=== PATIENT | female | born 1990 | race Caucasian/White ===

== ENCOUNTER 2024-04-26 19:53 | Emergency (ER) | payer OTHER, SELFPAY ==
[2024-04-26 20:00] VITALS: BP 114/79
--- NOTE | 2024-04-26 20:06 | ED.PDOC.TRB ---
ED Provider Triage
-
Patient seen by provider in Triage?: Seen in Triage
*Initial assessment performed in triage to expedite workup*
33-year-old female presents the emergency department for evaluation of chest tightness that has been occurring episodically throughout the day. She also feels weakness and near syncopal. Went to urgent care at which time she had an unremarkable
EKG and was deferred to the emergency department. She reports shortness of breath, has used her albuterol inhaler without relief. No recent fevers or chills. No recent nausea or vomiting.
Looks clinically well, initial EKG is unremarkable. Lungs are clear and heart sounds are regular. Will obtain basic labs including troponin given the patient describes symptoms as 'elephant sitting on my chest'. Will obtain chest x-ray
[2024-04-26 20:23] LABS: % Basophils 0.4 % (0-2); % Eosinophils 0.6 % (0-6); % Immature Granulocytes 0.1 % (0-0.5); % Lymphocytes 15.2 % (20.5-51.1); % Monocytes 5.3 % (1.7-9.3); % Neutrophils 78.4 % (42.2-75.2); Absolute Eosinophils 0.1 10^3/uL (0-0.7); Absolute Lymphocytes 1.2 10^3/uL (1.2-3.4); Absolute Monocytes 0.4 10^3/uL (0.1-0.6); Hematocrit 36.9 % (37.0-47.0); Hemoglobin 12.3 g/dL (12.0-16.0); Mean Corp Hgb Conc. 33.3 g/dL (33.0-37.0); Mean Corpuscular Hgb 30.4 pg (27.0-31.0); Mean Corpuscular Volume 91.1 fL (81.0-99.0); Mean Platelet Volume 11.1 fL (7.4-10.4); Nucleated Red Blood Cells % 0 %; Platelet Count 265 10^3/uL (130-400); Red Blood Cell Count 4.05 10^6/uL (4.20-5.40); Red Cell Dist. Width 12.5 % (11.5-14.5); White Blood Cell Count 7.7 10^3/uL (4.8-10.8)
[2024-04-26 20:44] LABS: ALT (SGPT) 13 U/L (0-35); AST (SGOT) 20 U/L (14-36); Albumin 4.5 g/dl (3.5-5.0); Alkaline Phosphatase 76 U/L (38-126); Blood Urea Nitrogen 16 mg/dl (7-17); Calcium 9.6 mg/dl (8.4-10.2); Carbon Dioxide 26 mmol/L (22-30); Chloride 103 mmol/L (98-107); Glucose 87 mg/dl (70-99); Potassium 3.6 mmol/L (3.5-5.1); Sodium 140 mmol/L (135-145); Total Bilirubin 0.9 mg/dl (0.2-1.3); Total Protein 7.4 g/dl (6.3-8.2); eGFR > 60.00
[2024-04-26 20:48] LABS: Troponin I < 0.012 ng/ml
[2024-04-26 22:25] VITALS: BMI 22.4
[2024-04-26 22:35] VITALS: BP 114/75
--- NOTE | 2024-04-26 23:05 | ED.GENMED ---
History of Present Illness
General
Chief Complaint: Chest Pain
Source: patient
Time Seen by Provider: 04/26/24 22:49
Travel History
Have you had any contact with someone who has COVID-19?: No
Do you have any symptoms of coronavirus? Fever > 100 degrees, chills, cough, shortness of breath, sore throat, loss of taste or smell, muscle aches, or headache?: No
History of Present Illness
History of Present Illness:
33-year-old female presents to the emergency room complaining of chest pain. Patient has been having chest pain since this afternoon. She used her albuterol without improvement. Patient went to urgent care where she was referred to the emergency
room. Patient describes it as a chest discomfort. It may be somewhat worse with deep inspiration. She is not particular short of breath. She feels worse with activity however. No fever or chills.
Past History
Past History
ED Past Medical History: Asthma and Other (PCOS, PE, Pituitar tumor, Anemia, )
ED Past Surgical History: , Gynecological (Leep, ) and Other (Gastric sleeve)
Social History
Tobacco: Non-smoker
Alcohol: Occasional
Drug: None
Personal:
Living: with family
Employment: Employed
Family History
Family History: Other (mother with ectopic )
Phy Exam
Physical Exam
Physical Exam:
General: Awake, Alert, Oriented X3. No acute distress.
Vitals: unremarkable
Head: Atraumatic
Eyes: Pupils equal, EOMI
Throat: Airway intact, no exudates
Neck: Trachea midline
Lungs: Clear and equal b/l
Heart: Regular rate, no murmurs
Abd: Soft, Nontender, No pulsatile mass
Neuro: Nonfocal
Skin: Warm, dry, no rash
Extremities: pulses equal b/l, no edema
Scores
Heart Score for Chest Pain Patients
STEMI patient?: No
History: Slightly or Non-Suspicious
ECG: Normal
Age: </= 45 years
Risk Factors: No Risk Factors
Troponin: </= Normal Limit
Heart Score for Chest Pain Patients: 0
Heart Score Risk: 2.5% MACE over next 6 weeks
Course
Orders/Labs/Results
Orders:
Orders
04/26/24 19:55
Electrocardiogram (*1) Urgent
Reason for Study: Vertigo / Dizzy
EKG- Treatment ONCE
04/26/24 20:05
CR Chest - 2 Views Urgent
Comment:
Reason For Exam: SOB/CP
04/26/24 20:09
Complete Blood Count/With Diff Urgent
Comprehensive Metabolic Panel Urgent
Troponin I Urgent
04/26/24 23:06
Ketorolac [Toradol] 15 mg IV NOW STA
04/26/24 23:07
Test Result ONCE
04/26/24 23:24
D-Dimer Urgent
HCG, Serum Qualitative Screen Urgent
Troponin I Urgent
Abnormal Lab Results
04/26/24
20:09
RBC 4.05 L 10^6/uL
(4.20-5.40)
Hct 36.9 L %
(37.0-47.0)
MPV 11.1 H fL
(7.4-10.4)
Neutrophils % 78.4 H %
(42.2-75.2)
Lymphocytes % 15.2 L %
(20.5-51.1)
04/26/24 20:09
04/26/24 20:09
Vital Signs
Initial and Last Documented VS:
Initial Vital Signs
Temp Pulse Resp BP Pulse Ox
98.0 F 82 16 114/79 100
04/26/24 20:00 04/26/24 20:00 04/26/24 20:00 04/26/24 20:00 04/26/24 20:00
Last Documented Vital Signs
Temp Pulse Resp BP Pulse Ox
98.0 F 79 15 109/73 99
04/26/24 20:00 04/27/24 01:01 04/27/24 01:01 04/27/24 01:01 04/26/24 22:25
MDM/Problems Addressed
Differential Diagnosis Includes:
Asthma exacerbation, chest wall discomfort, PE, acute coronary syndrome
MDM/Problems Addressed:
EKG shows no acute ischemic changes. Troponins negative x 2. D-dimer is normal. Physical exam not suggestive of a serious cause of chest discomfort. Patient revealed to Clementine her nurse that she did have a fall about a week ago. She did strike
her chest at that time. Suspect the patient's pain is from chest wall etiology. More serious etiologies have been excluded.
*Radiology
Radiology exam reviewed: radiology read reviewed
*Pulse Oximetry
Patient hypoxic: no
*EKG
Interpreted by ED Provider?: Yes
Interpretation: normal
Heart Rate: 84
Rate: normal
Rhythm: sinus
Corona: normal axis
Interval: normal interval
QRS Pattern: normal QRS
Ischemia: no ischemia
*Commercial Real Estate Attorney Interpretation
Rate: normal
Interpretation: normal
Rhythm: sinus
*Critical Care Note
Total Time (30-74mins, 75-104mins- exclusive of procedures): Not Applicable
ED Attending Note
-
Portions of this chart may have been created with voice recognition software.� Occasional wrong word or��sound alike� substitutions may have occurred due to the inherent limitations of voice recognition software.
Discharge Plan
Departure
Patient Disposition: Home (Routine Discharge)
Date of Disposition: 04/27/24
Time of Disposition: 00:30
Patient with high blood pressure during this ER visit?: No
Condition: Good
Discharge Problem:
Chest pain
Instructions: Chest Pain PCP Follow Up
Prescriptions:
No Action
albuterol sulfate 1 PUFF HFA aerosol inhaler
1 inh inhalation PRN PRN (Reason: asthma)
hydrocodone-acetaminophen 5-325 mg tablet
1 - 2 tab PO Q4HPRN PRN (Reason: moderate to severe pain) Qty: 14 0RF
Referrals:
Rafa Hirsch MD [Family Provider] -
Interventions
Interventions:
*Risk Screen - Suicide Last Done: 04/26/24 20:00
*General Assessment Last Done: 04/26/24 20:00
*Neglect/Abuse Screening Last Done: 04/26/24 20:00
ED- Fall Risk Assessment Last Done: 04/26/24 22:25
*ED COVID-19 Vaccine History Last Done: 04/26/24 22:25
*Nursing Disposition Last Done: 04/27/24 01:07
ED- Cardiac Assessment Last Done: 04/26/24 22:25
Discharge Date and Time
Discharge Date/Time: 04/27/24 01:08
Print Language: TAMAZIGHT
[2024-04-26] MEDS: TORADOL 15 MG IV (23:24)
[2024-04-26 23:48] LABS: D-Dimer 0.32 ug/mlFEU (0.00-0.50)
[2024-04-26 23:49] LABS: HCG, Serum Qualitative Screen Negative
[2024-04-26 23:59] LABS: Troponin I < 0.012 ng/ml
[2024-04-27 01:01] VITALS: BP 109/73
== END 2024-04-27 01:08 | disposition home or self-care (01) ==
LOC: EMR 19:53
PROVIDERS: Physician Assistant; EMERGENCY PHYSICIAN Emergency Medicine; FAMILY PHYSICIAN Internal Medicine
DX: R55 Syncope and collapse (principal); R07.89 Other chest pain; R06.02 Shortness of breath; J45.909 Unspecified asthma, uncomplicated; D64.9 Anemia, unspecified; Z98.84 Bariatric surgery status
CPT/HCPCS: 99284; 96374; 71046; 80053; 84484; 84703; 85025; 85379; 93005

== ENCOUNTER 2025-04-08 20:56 | Emergency (ER) | payer OTHER, SELFPAY ==
[2025-04-08 21:02] VITALS: BP 136/99
[2025-04-08] MEDS: ZOFRAN ODT (ORALLY DISINTEGRATING) 4 MG PO (21:09)
[2025-04-08 21:25] LABS: % Basophils 0.4 % (0-2); % Eosinophils 0.9 % (0-6); % Immature Granulocytes 0.3 % (0-0.5); % Lymphocytes 27.3 % (20.5-51.1); % Monocytes 6.2 % (1.7-9.3); % Neutrophils 64.9 % (42.2-75.2); Absolute Eosinophils 0.1 10^3/uL (0-0.7); Absolute Lymphocytes 2.1 10^3/uL (1.2-3.4); Absolute Monocytes 0.5 10^3/uL (0.1-0.6); Absolute Neutrophils 4.9 10^3/uL (1.4-6.5); Hematocrit 39.7 % (37.0-47.0); Hemoglobin 13.4 g/dL (12.0-16.0); Mean Corp Hgb Conc. 33.8 g/dL (33.0-37.0); Mean Corpuscular Hgb 30.2 pg (27.0-31.0); Mean Corpuscular Volume 89.4 fL (81.0-99.0); Mean Platelet Volume 10.8 fL (7.4-10.4); Nucleated Red Blood Cells % 0 %; Platelet Count 308 10^3/uL (130-400); Red Blood Cell Count 4.44 10^6/uL (4.20-5.40); Red Cell Dist. Width 12.9 % (11.5-14.5); White Blood Cell Count 7.6 10^3/uL (4.8-10.8)
[2025-04-08 21:38] LABS: Lactic Acid 0.9 mmol/L (0.7-2.0)
[2025-04-08 21:42] LABS: HCG, Serum Qualitative Screen Negative
[2025-04-08 21:47] LABS: ALT (SGPT) 15 U/L (0-35); AST (SGOT) 25 U/L (14-36); Albumin 4.5 g/dl (3.5-5.0); Alkaline Phosphatase 68 U/L (38-126); Blood Urea Nitrogen 13 mg/dl (7-17); Calcium 9.3 mg/dl (8.4-10.2); Carbon Dioxide 26 mmol/L (22-30); Chloride 106 mmol/L (98-107); Glucose 118 mg/dl (70-99); Potassium 3.6 mmol/L (3.5-5.1); Sodium 138 mmol/L (135-145); Total Bilirubin 1.5 mg/dl (0.2-1.3); Total Protein 7.7 g/dl (6.3-8.2); eGFR > 60.00
[2025-04-08 21:49] LABS: Creatine Phosphokinase 290 U/L (30-135); Lipase 89 U/L (23-300)
[2025-04-08 21:50] LABS: Troponin I < 0.012 ng/ml
[2025-04-09] VITALS: BP 138/82
--- NOTE | 2025-04-09 01:25 | ED.GENMED ---
History of Present Illness
General
Chief Complaint: Generalized Pain
Source: patient and spouse
Exam Limitations: none
Time Seen by Provider: 04/09/25 01:07
Nursing documentation reviewed up to this point in time: agreed with
History of Present Illness
History of Present Illness:
34-year-old female presents emergency department due to chest tightness, vomiting, shakes, lightheadedness 'terrible sunburn and generalized pain. [place] the beach [place], and fell asleep. She awoke sunburned. Tonight she was having the
nausea and vomiting all day, and called her primary care doctor. She was directed to the emergency department.
Past History
Past History
ED Past Medical History: Asthma and Other (PCOS, PE, Pituitar tumor, Anemia, )
ED Past Surgical History: , Gynecological (Leep, ) and Other (Gastric sleeve)
Social History
Tobacco: Non-smoker
Alcohol: Occasional
Drug: None
Personal:
Living: with family
Employment: Employed
Family History
Family History: Other (mother with ectopic )
Review of Systems
Review of Systems
Allergies reviewed?: Yes
All Other Systems: Not applicable
Constitutional: Reports no symptoms
EENT: Reports no symptoms
Respiratory: Reports no symptoms
Cardiac: Reports no symptoms
ABD/GI: Reports nausea, vomiting and diarrhea; Denies abdominal pain
: Reports no symptoms
Musculoskeletal: Reports no symptoms
Skin: Reports other (Sunburn)
Neurological: Reports no symptoms
Endocrine: Reports no symptoms
Hematologic/Lymphatic: Reports no symptoms
Psychiatric: Reports no symptoms
Phy Exam
Physical Exam
Physical Exam:
Physical Exam
General: no apparent distress, not acutely ill
Neck: supple. no meningeal signs. normal posterior pharynx
Heart: s1/s2 regular rate and rhythm, no murmur. equal radial
pulses.
HEENT: Pupils equal round reactive to light, EOMI
Lungs: no acute respiratory distress. clear bilaterally
Abdomen: normal bowel sounds. not tender. no CVAT
Neuro: alert and oriented. no focal neurological deficits cranial nerves II through XII intact
Skin: no rash, sunburn on anterior legs, trunk and face
Psychiatric: well kept. interactive and cooperative
Extremities: no edema. no calf tenderness. negative homans. good distal pulses
Course
Orders/Labs/Results
Orders:
Orders
04/08/25 21:05
Electrocardiogram (*1) Urgent
Reason for Study: Chest Pain
EKG- Treatment ONCE
Test Result ONCE
04/08/25 21:07
Ondansetron Orally Disint [Zofran Odt (Orally Disintegrating)] 4 mg .ROUTE .STK-MED ONE
04/08/25 21:08
Ondansetron Orally Disint [Zofran Odt (Orally Disintegrating)] 4 mg PO NOW STA
04/08/25 21:17
Complete Blood Count/With Diff Urgent
Comprehensive Metabolic Panel Urgent
Creatine [Creatine Phosphokinase] Urgent
HCG, Serum Qualitative Screen Urgent
Lactic Acid Urgent
Lipase Urgent
Troponin I Urgent
04/09/25 01:23
Ondansetron Injectable [Zofran] 4 mg IV NOW STA
04/09/25 01:24
Lactated Ringers [Lr] 1,000 ml IV BOLUS
04/09/25 01:30
Ketorolac [Toradol] 15 mg IV NOW STA
04/09/25 01:58
Acetaminophen [Tylenol] 650 mg PO NOW STA
04/09/25 02:07
Calamine [Calamine Lotion] See Dose Instructions TOPICAL STAT STA
04/09/25 02:26
Calamine [Calamine Lotion] See Dose Instructions TOPICAL STAT STA
04/09/25 03:11
Ketorolac [Toradol] 15 mg IV NOW STA
Abnormal Lab Results
04/08/25
21:17
MPV 10.8 H fL
(7.4-10.4)
Glucose 118 H mg/dl
(70-99)
Total Bilirubin 1.5 H mg/dl
(0.2-1.3)
Creatine Kinase 290 H U/L
(30-135)
04/08/25 21:17
04/08/25 21:17
Vital Signs
Initial and Last Documented VS:
Initial Vital Signs
Temp Pulse Resp BP Pulse Ox
97.5 F 95 16 136/99 98
04/08/25 21:02 04/08/25 21:02 04/08/25 21:02 04/08/25 21:02 04/08/25 21:02
Last Documented Vital Signs
Temp Pulse Resp BP Pulse Ox
97.5 F 74 18 119/84 100
04/08/25 21:02 04/09/25 01:55 04/09/25 01:55 04/09/25 01:55 04/09/25 01:55
MDM/Problems Addressed
Differential Diagnosis Includes:
Dehydration, sunburn
MDM/Problems Addressed:
34-year-old female with sunburn, nausea, vomiting, hypovolemia. Improved after IV fluids and Zofran. Treated with calamine and Toradol. Follow-up with primary care. Referral given to hematology due to her history of factor V Leiden and not
followed up in several years.
*Pulse Oximetry
Patient hypoxic: no
*Critical Care Note
Total Time (30-74mins, 75-104mins- exclusive of procedures): Not Applicable
Patient Management
Social determinants of health affecting care: Living situation and Strong social support
Escalation/DeEscalation of care consider admission/obs:
Admit not indicated
ED Attending Note
-
Portions of this chart may have been created with voice recognition software.� Occasional wrong word or��sound alike� substitutions may have occurred due to the inherent limitations of voice recognition software.
Discharge Plan
Departure
Patient Disposition: Home (Routine Discharge)
Date of Disposition: 04/09/25
Time of Disposition: 03:13
Patient with high blood pressure during this ER visit?: No
Condition: Good
Discharge Problem:
Sunburn, Nausea and vomiting
Instructions: Sunburn ED, Nausea and vomiting in adults
Prescriptions:
New
ondansetron 4 mg tablet,disintegrating
4 mg PO Q8H PRN (Reason: nausea and vomiting) 4 Days Qty: 7 0RF
Referrals:
Khari Sinclair DO [Active] - Call in 1-3 days for appt
Steven Bhat MD [Family Provider] - Call in 1-3 days for appt
Interventions
Interventions:
*Risk Screen - Suicide Last Done: 04/09/25 02:02
*General Assessment Last Done: 04/09/25 02:02
*Neglect/Abuse Screening Last Done: 04/09/25 02:02
*ED- Fall Risk Assessment Last Done: 04/09/25 02:02
*ED COVID-19 Vaccine History Last Done: 04/09/25 02:02
Discharge Date and Time
Print Language: TURKMEN
[2025-04-09] MEDS: LR 1000 IV (01:53)
[2025-04-09] MEDS: ZOFRAN 4 MG IV ×2 (01:54→03:52)
[2025-04-09 01:55] VITALS: BP 119/84
[2025-04-09] MEDS: TYLENOL 650 MG PO (02:29)
[2025-04-09] MEDS: CALAMINE LOTION 50 ML TOPICAL (02:43)
[2025-04-09] MEDS: NSS 1000 IV (03:53)
[2025-04-09] MEDS: TORADOL 15 MG IV (03:58)
[2025-04-09 04:00] VITALS: BP 103/69
[2025-04-09 05:02] VITALS: BP 90/51
== END 2025-04-09 05:15 | disposition home or self-care (01) ==
LOC: EMR 20:56
PROVIDERS: Emergency Medicine; Student in an Organized Health Care Education/Training Program; EMERGENCY PHYSICIAN Emergency Medicine; FAMILY PHYSICIAN Internal Medicine
DX: L55.9 Sunburn, unspecified (principal); R11.2 Nausea with vomiting, unspecified; R42 Dizziness and giddiness; J45.909 Unspecified asthma, uncomplicated; E28.2 Polycystic ovarian syndrome; D64.9 Anemia, unspecified; D68.51 Activated protein C resistance; E86.1 Hypovolemia
CPT/HCPCS: 99283; 96374; 96375; 96376; 80053; 82550; 83605; 83690; 84484; 84703; 85025; 93005

== ENCOUNTER 2025-09-14 16:50 | Emergency (ER) | payer OTHER, SELFPAY ==
[2025-09-14 16:54] VITALS: BP 132/87
[2025-09-14 17:16] LABS: Hematocrit 39.0 % (37.0-47.0); Hemoglobin 12.7 g/dL (12.0-16.0); Mean Corp Hgb Conc. 32.6 g/dL (33.0-37.0); Mean Corpuscular Volume 89.4 fL (81.0-99.0); Nucleated Red Blood Cells % 0 %; Platelet Count 285 10^3/uL (130-400); Red Cell Dist. Width 12.6 % (11.5-14.5)
[2025-09-14 17:28] LABS: HCG, Serum Qualitative Screen Negative
[2025-09-14 17:34] LABS: ALT (SGPT) 18 U/L (0-35); AST (SGOT) 25 U/L (14-36); Albumin 4.7 g/dl (3.5-5.0); Alkaline Phosphatase 74 U/L (38-126); Blood Urea Nitrogen 10 mg/dl (7-17); Calcium 9.3 mg/dl (8.4-10.2); Carbon Dioxide 27 mmol/L (22-30); Chloride 105 mmol/L (98-107); Glucose 100 mg/dl (70-99); Potassium 3.6 mmol/L (3.5-5.1); Sodium 138 mmol/L (135-145); Total Protein 8.0 g/dl (6.3-8.2); eGFR > 60.00
[2025-09-14 17:35] LABS: COVID-19 Antigen Negative (Negative)
[2025-09-14 18:21] VITALS: BMI 18.1
[2025-09-14 18:26] VITALS: BP 104/63
--- NOTE | 2025-09-14 19:14 | ED.GENMED ---
History of Present Illness
General
Chief Complaint: Cold/Flu/URI Symptoms
Source: patient
Exam Limitations: none
Time Seen by Provider: 09/14/25 18:30
Nursing documentation reviewed up to this point in time: agreed with
History of Present Illness
History of Present Illness:
Patient is a 34-year-old female who presents to the emergency department with viral symptoms X 1 week. Patient states that she has felt generally rundown and extremely fatigued throughout the week. She has been experiencing intermittent fever,
chills as well as sore throat. She denies any vomiting however states she has been dealing with infrequent episodes of diarrhea throughout the week and feels dehydrated. Last night, she had a temp of 101 and today states she feels like 'she got
hit by a truck'.
She denies any productive cough although over the past 24 hours has developed an intermittent pain in her mid chest. This is not exertional or pleuritic in nature.
Patient denies any shortness of breath/difficulty breathing, difficulty swallowing, abdominal pain. No severe headache or neck pain.
Additionally, patient has been experiencing irregular menstrual periods over the past 2 months and is currently scheduled to follow-up with her ROTARY SOIL STABILIZER OPERATOR in a few weeks.
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
Past History
Past History
ED Past Medical History: Asthma and Other (PCOS, PE, Pituitar tumor, Anemia, )
ED Past Surgical History: , Gynecological (Leep, ) and Other (Gastric sleeve)
Social History
Tobacco: Non-smoker
Alcohol: Occasional
Drug: None
Personal:
Living: with family
Employment: Employed
Family History
Family History: Other (mother with ectopic )
Review of Systems
Review of Systems
Allergies reviewed?: Yes
All Other Systems: ROS reviewed and negative except as documented in HPI and ROS
Phy Exam
Physical Exam
Physical Exam:
Vitals: Patient's vital signs are stable. Afebrile
General: Patient is sleeping on initial evaluation. In no distress
Skin: Warm and dry, no rashes or lesions
Head: Normocephalic, atraumatic
Eyes: Sclera nonicteric.
Throat: Posterior pharynx mildly erythematous with mild tonsillar edema and exudates. Uvula midline. No NEONATAL INTENSIVE CARE NURSE. No trismus. Protecting airway
Neck: Normal ROM, no cervical spine tenderness, no meningismus
Cardiac: Regular rate and rhythm, no murmurs.
Pulm: Normal respiratory effort, no wheezes, rales, rhonchi heard on exam
Abdomen: Abdomen soft and nontender.
Extremities: No evidence of cyanosis or edema. Distal pulses
Neuro: AAOx3. Grossly intact
Psychiatric: Normal affect.
Course
Orders/Labs/Results
Orders:
Orders
09/14/25 16:58
Test Result ONCE
09/14/25 17:05
COVID-19 Antigen Urgent
Source: Nasal Swab
Complete Blood Count/With Diff Urgent
Comprehensive Metabolic Panel Urgent
HCG, Serum Qualitative Screen Urgent
Monotest Urgent
Comment: ADD ON
Influenza A+B Rapid Molecular Urgent
ANEL Source: Nasal Swab
Specimen Description:
Date Specimen was Collected: 09/14/25
Time Specimen was Collected: 16:58
Rapid Strep Group A Urgent
ANEL Source: Throat/Pharynx
Specimen Description:
Date Specimen was Collected: 09/14/25
Time Specimen was Collected: 16:58
09/14/25 18:50
Add On- LAB Urgent
Tests Added?: monospot
Dexamethasone Sod Phosphate [Decadron] 10 mg IV NOW STA
Ketorolac [Toradol] 15 mg IV NOW STA
09/14/25 18:51
CR Chest - 2 Views Urgent
Comment:
Reason For Exam: chest pain
09/14/25 19:28
Troponin I Urgent
09/14/25 19:37
0.9% Sodium Chloride 1000 ml [Nss] 1,000 ml IV BOLUS
09/14/25 20:03
Urinalysis Reflex To Culture Urgent
Date Specimen was Collected: 09/14/25
Time Specimen was Collected: 19:57
Urine Microscopic Reflex Cult Urgent
Urine Culture Urgent
ANEL Source: U
Specimen Description:
Date Specimen was Collected: 09/14/25
Time Specimen was Collected: 19:57
09/14/25 21:36
Amoxicillin [Amoxil] 1,000 mg PO NOW STA
Azithromycin [Zithromax] 500 mg PO NOW STA
09/14/25 21:52
Azithromycin [Zithromax] 250 mg .ROUTE .STK-MED ONE
Abnormal Lab Results
09/14/25 09/14/25
17:05 20:03
WBC 11.7 H 10^3/uL
(4.8-10.8)
MCHC 32.6 L g/dL
(33.0-37.0)
MPV 10.6 H fL
(7.4-10.4)
Abs Immat Gran (auto) 0.1 H 10^3/uL
(0-0.05)
Absolute Neuts (auto) 9.6 H 10^3/uL
(1.4-6.5)
Absolute Monos (auto) 0.7 H 10^3/uL
(0.1-0.6)
Neutrophils % 82.4 H %
(42.2-75.2)
Lymphocytes % 10.4 L %
(20.5-51.1)
Glucose 100 H mg/dl
(70-99)
Total Bilirubin 1.4 H mg/dl
(0.2-1.3)
Urine Ketones 2+ A
(Negative)
Ur Occult Blood Reflex 4+ A
(Negative)
Leukocyte Esterase Rfl 3+ A
(Negative)
Urine WBC (Reflex) 50-60 A /HPF
(0-5)
Urine Bacteria (Reflex) Few A
(Negative)
Urine Albumin (Reflex) 2+ A
(Neg - Trace)
09/14/25 17:05
09/14/25 17:05
Vital Signs
Initial and Last Documented VS:
Initial Vital Signs
Temp Pulse Resp BP Pulse Ox
97.9 F 101 18 132/87 100
09/14/25 16:54 09/14/25 16:54 09/14/25 16:54 09/14/25 16:54 09/14/25 16:54
Last Documented Vital Signs
Temp Pulse Resp BP Pulse Ox
98.9 F 79 18 108/74 99
09/14/25 21:30 09/14/25 21:30 09/14/25 21:30 09/14/25 21:30 09/14/25 21:30
MDM/Problems Addressed
Differential Diagnosis Includes:
Not limited to: Viral illness, acute dehydration, group A strep pharyngitis, myocarditis, bronchitis, pneumonia, etc.
MDM/Problems Addressed:
34-year-old female presents with 1 week of viral type symptoms including fever, myalgias, sore throat, and fatigue. She denies shortness of breath or abdominal pain. On arrival, vital signs are stable and she is afebrile. Exam reveals a nontoxic,
well-appearing patient without meningismus; cardiopulmonary and abdominal exams are benign and unremarkable. Laboratory studies demonstrate a mild leukocytosis with otherwise relatively unremarkable chemistry. Viral studies including COVID,
influenza, and mono were negative. Chest x-ray shows possible right basilar opacity concerning for early pneumonia.
Given her overall stable presentation, absence of hypoxia or fever, and mild improvement of symptoms in the ED, findings are most consistent with mild community-acquired pneumonia. She does not meet criteria for admission. Plan to initiate oral
antibiotics provide supportive care. The patient was counseled regarding diagnosis, expected course and need for close outpatient follow-up. Return precautions for worsening symptoms were discussed, the patient verbalized understanding is
comfortable with discharge home
Chronic conditions affecting care:
N/A
Acute Exacerbation and/or Progression of Chronic Illness:
N/A
*Radiology
Radiology exam reviewed: radiology read reviewed
*Pulse Oximetry
SaO2: 98
Oxygen Mode of Delivery: Room air
Patient hypoxic: no
*EKG
Interpreted by ED Provider?: NA
*Track Machine Operator Repairer Interpretation
Rate: Track Machine Operator Repairer- N/A
*Critical Care Note
Total Time (30-74mins, 75-104mins- exclusive of procedures): Not Applicable
ED Attending Note
-
Portions of this chart may have been created with voice recognition software.� Occasional wrong word or��sound alike� substitutions may have occurred due to the inherent limitations of voice recognition software.
Discharge Plan
Departure
Patient Disposition: Home (Routine Discharge)
Date of Disposition: 09/14/25
Time of Disposition: 21:39
Patient with high blood pressure during this ER visit?: No
Condition: Good
Discharge Problem:
Pneumonia involving right lung
Instructions: Viral Syndrome (DC), Pneumonia in adults - ED (DC)
Prescriptions:
New
amoxicillin 500 mg tablet
1,000 mg PO TID 5 Days Qty: 30 0RF
azithromycin 250 mg tablet
250 mg PO DAILY 4 Days Qty: 4 0RF
No Action
ondansetron 4 mg tablet,disintegrating
4 mg PO Q8H PRN (Reason: nausea and vomiting) 4 Days Qty: 7 0RF
Referrals:
Shayna Rios MD [Primary Care Provider, Internal Medicine] - Follow up in 5-7 days
Activity Restrictions/Additional Instructions:
RETURN TO THE EMERGENCY DEPARTMENT WITH ANY FEVER, CHILLS, CHEST PAIN, SHORTNESS OF BREATH/DIFFICULTY BREATHING, SEVERE SORE THROAT OR DIFFICULTY SWALLOWING, WEAKNESS, WORSENING CURRENT SYMPTOMS, OR ANY OTHER CONCERNS
- As discussed�your chest x-ray did show findings suspicious for a right basilar pneumonia. For antibiotics has been sent to your pharmacy. Please take as directed for the next 5 days. You were given your first dose tonight in emergency
department.
-Continue to stay well-hydrated at home. Take Tylenol and/or Motrin as needed for pain.
- Follow-up with your primary care provider in 1 week to ensure your symptoms and pneumonia have resolved. You may require repeat chest x-ray
Monitor your symptoms closely and return to the emergency department any acute worsening/new symptoms or any other concerns
Interventions
Interventions:
*Risk Screen - Suicide Last Done: 09/14/25 16:54
*General Assessment Last Done: 09/14/25 16:54
*Neglect/Abuse Screening Last Done: 09/14/25 16:54
*ED- Fall Risk Assessment Last Done: 09/14/25 18:40
*ED COVID-19 Vaccine History Last Done: 09/14/25 18:40
*ED Influenza Vaccine History Last Done: 09/14/25 18:40
*Nursing Disposition Last Done: 09/14/25 21:59
ED- Cardiac Assessment Last Done: 09/14/25 21:50
ED-Female Genitourinary Assessment Last Done: 09/14/25 18:40
ED- Neurological Assessment Last Done: 09/14/25 18:40
ED- Pulmonary Assessment Last Done: 09/14/25 18:40
Discharge Date and Time
Discharge Date/Time: 09/14/25 22:00
Print Language: SYRIAC
[2025-09-14] MEDS: DECADRON 10 MG IV (19:28)
[2025-09-14] MEDS: TORADOL 15 MG IV (19:29)
[2025-09-14] MEDS: NSS 1000 IV (19:38)
[2025-09-14 20:04] LABS: Troponin I < 0.012 ng/ml
[2025-09-14 20:13] LABS: Urine Character Cloudy (Clear)
[2025-09-14 20:20] LABS: Urine Squamous Cell >30 /LPF (Few)
[2025-09-14 20:21] LABS: Urine Red Blood Cell 0-2 /HPF (0-2); Urine White Cell 50-60 /HPF (0-5)
[2025-09-14 21:30] VITALS: BP 108/74
[2025-09-14] MEDS: AMOXIL 1000 MG PO (21:48)
[2025-09-14] MEDS: ZITHROMAX 500 MG PO (21:48)
== END 2025-09-14 22:00 | disposition home or self-care (01) ==
LOC: EMR 16:50
PROVIDERS: Physician Assistant; Student in an Organized Health Care Education/Training Program; EMERGENCY PHYSICIAN Student in an Organized Health Care Education/Training Program; PRIMARYCARE PHYSICIAN Student in an Organized Health Care Education/Training Program
DX: J18.9 Pneumonia, unspecified organism (principal); R19.7 Diarrhea, unspecified; N92.6 Irregular menstruation, unspecified; Z11.52 Encounter for screening for COVID-19; E28.2 Polycystic ovarian syndrome; J45.909 Unspecified asthma, uncomplicated; D64.9 Anemia, unspecified; R73.03 Prediabetes; R01.1 Cardiac murmur, unspecified; Z98.84 Bariatric surgery status; Z86.711 Personal history of pulmonary embolism
CPT/HCPCS: 99284; 96374; 96375; 96361; 71046; 80053; 81003; 81015; 84484; 84703; 85025; 86308; 87070; 87086; 87147; 87502; 87811; 87880

== ENCOUNTER → 2025-10-18 10:51 | Outpatient (REF) | payer OTHER, SELFPAY | LOC: RAD 10:51 | PROVIDERS: ATTENDING PHYSICIAN Obstetrics & Gynecology; FAMILY PHYSICIAN Physician Assistant | DX: N92.6 Irregular menstruation, unspecified (principal) | CPT/HCPCS: 76830; 76856 ==